=== PATIENT | female | born 1945 | race Caucasian/White ===

== ENCOUNTER 2025-07-08 05:05 | Inpatient (IN) ==
[2025-07-08] MEDS: OPTIRAY 320 100ml IV ONE (05:41)
[2025-07-08 05:53] LABS: Appearance Urine Cloudy (Clear); Bacteria Urine Automated 2+ (None Seen); Cast Urine Automated 0-2 /lpf (0-2); Epithelial Cell Urine Auto >20 /hpf (0-2); Glucose Urine UA Negative (Negative); RBC Urine Automated 0-2 /hpf (0-2); WBC Urine Automated 21-50 /hpf (0-5)
[2025-07-08 05:54] LABS: Hematocrit (blood only) 37.1 % (37.0-47.0); Hemoglobin 12.9 g/dL (12.0-16.0); Immature Granulocytes # (auto) 0.06 K/uL (0.01-0.20); Immature Granulocytes % (auto) 0.3 %; Mean Corpuscular Hemoglobin 28.5 pg (25.0-34.0); Mean Corpuscular Volume 81.9 fL (80.0-100.0); Platelet Count 407 K/uL (130-400); RDW Standard Deviation 37.3 fL (36.4-46.3); Red Blood Count 4.53 M/uL (4.20-5.40); White Blood Count 17.37 K/ul (4.8-10.8)
[2025-07-08 06:13] LABS: Alanine Aminotransferase 66.0 U/L (7-52); Albumin Globulin Ratio 1.0 (0.9-2); Albumin Level 3.8 gm/dl (3.4-5.0); Alkaline Phosphatase 324.0 U/L (34-104); Anion Gap 12.0 (3-11); Bilirubin,Total 0.6 mg/dl (0.2-1.0); Blood Urea Nitrogen 14.0 mg/dl (6-23); Calcium 8.9 mg/dl (8.6-10.3); Carbon Dioxide 23.0 mmol/L (21-32); Chloride 98.0 mmol/L (98-107); Creatinine Clr Calc Pharmacy 56.5 ml/min; Globulin 3.8 gm/dl (2.5-4.0); Glucose 120.0 mg/dl (70-99(Fasting)); Lipase 3.0 U/L (11-82); Potassium 3.8 mmol/L (3.5-5.1); Sodium 133.0 mmol/L (136-145); Total Protein 7.6 gm/dl (6.0-8.3)
[2025-07-08] MEDS: ACETAMINOPHEN 1,000 MG/100 ML VIAL IV STA (06:19)
--- NOTE | 2025-07-08 06:27 | CT Scan Report ---
EXAM: CT abdomen pelvis wo/w con CLINICAL HISTORY: Right flank pain TECHNIQUE: CT of the abdomen and pelvis was performed without and with IV contrast, with the following protocol: axial images with, and reconstructed coronal and sagittal images. One of the following dose reduction techniques was utilized for this exam: Automated exposure control, adjustment of the mA and/or kV according to patient size, and use of iterative reconstruction. COMPARISON: 07/04/2025 CR was reviewed. FINDINGS: Abdomen: Liver: Normal in size, shape, and density. No focal lesions, cysts, or masses were identified. Hepatic vasculature and biliary ducts are unremarkable. Gallbladder and Biliary System: The gallbladder is normal in size and shape. No wall thickening, pericholecystic fluid, or gallstones were identified. The common bile duct is normal in caliber without dilation. Pancreas: The pancreatic head, body, and tail are visualized and appear normal in size and density. No pancreatic masses or calcifications were noted. The pancreatic duct is not dilated. Spleen: Normal in size, shape, and density. No splenic lesions or masses were identified. Appendix: A well-defined marginally enhanced retrocecal lesion measures about 5 x 6 x 8 cm. The Appendix is indistinct, likely an appendicular abscess associated with mesenteric fat stranding and cecal mural thickening. Kidneys and Adrenal Glands: Both kidneys are normal in size, shape, and position. Cortical thickness is within normal limits. No renal calculi or hydronephrosis. Adrenal glands are unremarkable with no evidence of masses or hyperplasia. Pelvis: Urinary Bladder: Normal in contour and wall thickness. No intraluminal lesions identified. Uterus: Small intramural and subserous bulging lesions, likely fibroids. Ultrasound correlation is advised. Ovaries: No masses. Vagina: Normal in contour and wall thickness. Cervix: No evidence of mass or abnormal thickening. Peritoneal and Retroperitoneal Structures: Minimal pelvic fluid. No lymphadenopathy was noted. Mesnetic panniculitis noted. Bowel: Otherwise, no evidence of bowel obstruction or wall thickening. Bones and Soft Tissues: Pelvic bones and soft tissues are unremarkable. No fractures or abnormal masses were identified. IMPRESSION: CT findings are impressive of complicated retrocecal appendicitis with reterocecal abscess formation. Clinical context is required. The underlying neoplastic lesion is not totally excluded. Electronically signed by Gene Reyes 07-08-2025 06:27 AM
[2025-07-08] MEDS: PIPERACILLIN/TAZOBACTAM 4.5 GM/100 ML BAG IV ONE (06:41)
[2025-07-08] MEDS: CEFEPIME 2000MG 2,000 MG/20 ML SYR IV SCH ×2 (06:50→15:15)
--- NOTE | 2025-07-08 07:13 | Emergency Department Note ---
Impression & Plan Appendicitis with abscess, Flank Pain, Acute appendicitis ED Provider Note NAME: TYSON DAVIS AGE: 79 SEX: F : 1945 ARRIVES VIA: Walk-In INFORMANT: Patient, ED PROVIDER(S): Johanna Bourne MD CHIEF COMPLAINT: Right flank pain HPI: This is an 79-year-old female presents for right flank pain. Patient states that over the past 1 week she has had increasing pain to the right lower quadrant. She notes she saw her primary care doctor on Friday who did an x-ray and blood work. This was unrevealing. Feels pain is progressively worsening. She has had chills without fevers. No urinary symptoms. No nausea vomiting or diarrhea. No chest pain or shortness of breath. Pain is in the right lower quadrant and wraps around into the flanks. ROS: See above HPI for pertinent positives & negatives. A total of 10 systems reviewed and were otherwise negative. PAST MEDICAL HISTORY: See Below PAST SURGICAL HISTORY: See Below FAMILY HISTORY: See Below SOCIAL HISTORY: See Below HOME MEDICATIONS: See Below ALLERGIES: See Below VITALS: See Below PHYSICAL EXAMINATION: General: resting comfortably in no acute distress Head: Normocephalic and atraumatic Eyes: Normal inspection, extraocular muscles intact Ear, nose, throat: Normal external exam Neck: Normal range of motion Respiratory: lungs clear to auscultation bilaterally Cardiovascular: Regular rate/rhythm, no murmur GI: Exquisitely tender in the right lower quadrant without rebound, voluntary guarding Extremities: nontender, moves all extremities Neuro: The patient awake and alert, appropriately conversive, no focal deficits, symmetric faces Skin: Warm, dry, and intact MEDICAL DECISION MAKING: This is a 79-year-old female presenting for right lower quadrant pain. Screening blood work, CT imaging ordered at triage. - Screening blood work reveals signs of leukocytosis not initially present 4 days ago. Electrolytes within normal limits. -Urinalysis reveals likely contamination, no urinary symptoms per patient - CT imaging reveals a complicated appendicitis with retrocecal abscess formation - Patient given cefepime and metronidazole as patient has a penicillin allergy - Care discussed with Dr. Cheatham's PA will see the patient promptly for further planning -Patient ultimately will admit to medicine based on surgical recommendations -Care discussed with Dr. Amato, hospitalist for admission Differential diagnosis: Abscess, cholecystitis, pyonephritis, UTI, renal colic Diagnostics interpreted by me: ECG: None Cardiac Monitoring: An order was placed for continuous cardiac monitoring. The monitor shows a rate of 61 with sinus rhythm. Past Med/Surg History Problem List (Updated 07/08/25 @ 13:51 by Johanna Bourne MD) Acute appendicitis (Acute) Flank Pain (Acute) Appendicitis with abscess (Acute) Prehypertension Cataract Impaired glucose tolerance Hyperlipidemia Eustachian tube disorder Sleep disorder Migraine occasional Arthritis of knee, left Menopause (Acute) Medical History Need for hepatitis C screening test Surgical History Hx of cataract extraction History of wisdom tooth extraction S/P breast biopsy (~2005) benign Family History Mother Tonsillar cancer Father Diabetes Brother Lung cancer Prostate cancer Myocardial infarction Seizure Stroke Sister Hypertension Aunt Breast cancer Denies family history of Ovarian cancer Colorectal cancer Social History Smoking Status: Never smoker Second Hand Exposure: No; Do You Dip or Chew Tobacco: No; Hx Alcohol Use: No Hx Substance Use: No Preferred Language: Portuguese Communication Ability: Effective Visual Impairment: Diminished Hearing Ability: Normal Intramural Director Required: No Beliefs That Will Affect Care: None marital status: / Current Living Situation: Family current occupational status: retired How many Children do You have: 0 Feels Safe at Home: Yes Childhood Exposure to Second-Hand Smoke: Yes Diet: regular caffeine: Yes Dental Care, Regularly: Yes Physical Activity Frequency: Daily Seatbelt Use: always Sunscreen Use: Yes Assistive Devices: None Allergies Allergies Allergy/AdvReac Type Severity Reaction Status Date / Time fexofenadine [From Arpita] Allergy Unknown Weakness Verified 07/08/25 06:31 Penicillins Allergy Unknown Rash Verified 07/08/25 06:31 Home Meds Home Medications Medication Instructions Recorded Confirmed omega-3 fatty acids 1,000 mg 1,000 mg PO DAILY 03/26/23 07/08/25 capsule turmeric 400 mg capsule 400 mg PO DAILY 03/26/23 07/08/25 vitamin B complex 1 cap PO DAILY 03/26/23 07/08/25 multivitamin 1 tab PO DAILY 06/14/25 07/08/25 Previous Rx's Medication Instructions Recorded ergocalciferol (vitamin D2) 1,250 1,250 mcg PO .weekly #14 caps 11/16/24 mcg (50,000 unit) capsule Results & Data (ED) Vital Signs Vital Signs - 24 hr 07/08/25 05:08 07/08/25 05:41 07/08/25 06:00 Temperature 36.6 C Temperature Source Oral Pulse Rate 73 67 60 Pulse Rate from SpO2 Sensor Respiratory Rate 18 18 Respiratory Effort / Characteristics Non-Labored Spontaneous Respiratory Depth Normal Respiratory Pattern Regular Blood Pressure 153/77 H 138/66 Blood Pressure Mean 102 99 Blood Pressure Position Sitting Pulse Oximetry 99 96 Oxygen Delivery Method Room Air Room Air Sepsis Recent Fever Within 48 Hours No Sepsis New/Unexplained Change in Mental Status N/A Sepsis Action Taken by Nursing No Action Required 07/08/25 06:30 07/08/25 07:00 07/08/25 07:30 Temperature Temperature Source Pulse Rate 60 58 L 59 L Pulse Rate from SpO2 Sensor 58 L 59 L Respiratory Rate 20 16 18 Respiratory Effort / Characteristics Respiratory Depth Respiratory Pattern Blood Pressure 150/61 H 152/64 H 163/66 H Blood Pressure Mean 107 93 98 Blood Pressure Position Pulse Oximetry 98 93 95 Oxygen Delivery Method Room Air Room Air Room Air Sepsis Recent Fever Within 48 Hours Sepsis New/Unexplained Change in Mental Status Sepsis Action Taken by Nursing 07/08/25 08:00 07/08/25 08:30 Temperature Temperature Source Pulse Rate 58 L 57 L Pulse Rate from SpO2 Sensor 58 L 57 L Respiratory Rate 14 16 Respiratory Effort / Characteristics Respiratory Depth Respiratory Pattern Blood Pressure 150/66 H 152/66 H Blood Pressure Mean 94 94 Blood Pressure Position Pulse Oximetry 95 94 Oxygen Delivery Method Room Air Room Air Sepsis Recent Fever Within 48 Hours Sepsis New/Unexplained Change in Mental Status Sepsis Action Taken by Nursing Laboratory Data 07/08/25 10:24 07/08/25 05:20 Lab Results 07/08/25 Range/Units 05:20 WBC 17.37 H (4.8-10.8) K/ul RBC 4.53 (4.20-5.40) M/uL Hgb 12.9 (12.0-16.0) g/dL Hct 37.1 (37.0-47.0) % MCV 81.9 (80.0-100.0) fL MCH 28.5 (25.0-34.0) pg MCHC 34.8 (32.0-36.0) g/dL RDW Std Deviation 37.3 (36.4-46.3) fL RDW Coeff of Eugenia 12.3 (11.5-14.5) % Plt Count 407 H (130-400) K/uL MPV 10.8 (9.4-12.4) fL Immature Gran % (Auto) 0.3 % Neut % (Auto) 76.5 % Lymph % (Auto) 16.6 % [place] % (Auto) 6.0 % Eos % (Auto) 0.4 % Baso % (Auto) 0.2 % Neut # (Auto) 13.27 H (1.40-6.50) K/uL Lymph # (Auto) 2.89 (1.20-3.40) K/uL [place] # (Auto) 1.04 H (0.11-0.59) K/uL Eos # (Auto) 0.07 (0.00-0.50) K/uL Baso # (Auto) 0.04 (0.00-0.20) K/uL Immature Gran # (Auto) 0.06 (0.01-0.20) K/uL Sodium 133 L (136-145) mmol/L Potassium 3.8 (3.5-5.1) mmol/L Chloride 98 (98-107) mmol/L Carbon Dioxide 23 (21-32) mmol/L Anion Gap 12 H (3-11) BUN 14 (6-23) mg/dl Creatinine 0.84 (0.6-1.2) mg/dl Est Cr Clr Drug Dosing 56.5 ml/min eGFR 70.20 BUN/Creatinine Ratio 16.7 (10-20) Glucose 120 H (70-99(Fasting)) mg/dl Calcium 8.9 (8.6-10.3) mg/dl Total Bilirubin 0.6 (0.2-1.0) mg/dl AST 56 H (13-39) U/L ALT 66 H (7-52) U/L Alkaline Phosphatase 324 H (34-104) U/L Total Protein 7.6 (6.0-8.3) gm/dl Albumin 3.8 (3.4-5.0) gm/dl Globulin 3.8 (2.5-4.0) gm/dl Albumin/Globulin Ratio 1.0 (0.9-2) Lipase 3 L (11-82) U/L Urine Color Yellow Urine Appearance Cloudy A (Clear) Urine pH 5.5 (4.5-7.5) Ur Specific [place] 1.020 (1.000-1.030) Urine Protein Trace H (Negative) Urine Glucose (UA) Negative (Negative) Urine Ketones Trace H (Negative) Urine Blood Negative (Negative) Urine Nitrite Negative (Negative) Urine Bilirubin Negative (Negative) Urine Urobilinogen Negative (Negative) Ur Leukocyte Esterase 2+ H (Negative) Urine WBC (Auto) 21-50 H (0-5) /hpf Urine RBC (Auto) 0-2 (0-2) /hpf U Hyaline Cast (Auto) 0-2 (0-2) /lpf U Epithel Cells (Auto) >20 H (0-2) /hpf Urine Bacteria (Auto) 2+ H (None Seen) Urine Comment Administered Medications Sodium Chloride (Nss) 1,000 mls @ 80 mls/hr IV .[id number] RACIEL Stop: 07/11/25 10:14 Last Admin: 07/08/25 10:33 Dose: 80 mls/hr Documented By: RADHA Discontinued Medications Acetaminophen (Ofirmev) 1,000 mg in 100 mls @ 400 mls/hr IV NOW STA Stop: 07/08/25 06:29 Last Infusion: 07/08/25 06:34 Dose: Infused Documented By: Admin: 07/08/25 06:19 Dose: 400 mls/hr Documented By: NAVI Piperacillin Sod/Tazobactam Sod (Zosyn) 4.5 gm in 100 mls @ 200 mls/hr IV NOW ONE; Protocol Stop: 07/08/25 06:58 Last Admin: 07/08/25 06:41 Dose: Not Given Documented By: NAVI Metronidazole (Flagyl) 500 mg in 100 mls @ 100 mls/hr IV Q8H [facility]; Protocol Stop: 07/10/25 06:44 Last Infusion: 07/08/25 08:47 Dose: Infused Documented By: Admin: 07/08/25 07:14 Dose: 100 mls/hr Documented By: RADHA Cefepime HCl (Maxipime 2000mg) 2,000 mg in 20 mls @ 5 mls/min IV Q12H [facility]; Protocol Stop: 07/10/25 06:44 Last Admin: 07/08/25 06:50 Dose: 5 mls/min Documented By: NAVI Ioversol (Optiray 320 100ml) 100 ml IV ONCE ONE Stop: 07/08/25 05:42 Last Admin: 07/08/25 05:41 Dose: 93 ml Documented By: JOSE Ketorolac Tromethamine (Ketorolac Tromethamine 15 Mg/Ml Vial) 15 mg IV NOW ONE Stop: 07/08/25 09:26 Last Admin: 07/08/25 10:28 Dose: 15 mg Documented By: RADHA Imaging Data Radiologist's Impression: Abdomen/Pelvis CT 07/08/25 05:12 EXAM: CT abdomen pelvis wo/w con CLINICAL HISTORY: Right flank pain TECHNIQUE: CT of the abdomen and pelvis was performed without and with IV contrast, with the following protocol: axial images with, and reconstructed coronal and sagittal images. One of the following dose reduction techniques was utilized for this exam: Automated exposure control, adjustment of the mA and/or kV according to patient size, and use of iterative reconstruction. COMPARISON: 07/04/2025 CR was reviewed. FINDINGS: Abdomen: Liver: Normal in size, shape, and density. No focal lesions, cysts, or masses were identified. Hepatic vasculature and biliary ducts are unremarkable. Gallbladder and Biliary System: The gallbladder is normal in size and shape. No wall thickening, pericholecystic fluid, or gallstones were identified. The common bile duct is normal in caliber without dilation. Pancreas: The pancreatic head, body, and tail are visualized and appear normal in size and density. No pancreatic masses or calcifications were noted. The pancreatic duct is not dilated. Spleen: Normal in size, shape, and density. No splenic lesions or masses were identified. Appendix: A well-defined marginally enhanced retrocecal lesion measures about 5 x 6 x 8 cm. The Appendix is indistinct, likely an appendicular abscess associated with mesenteric fat stranding and cecal mural thickening. Kidneys and Adrenal Glands: Both kidneys are normal in size, shape, and position. Cortical thickness is within normal limits. No renal calculi or hydronephrosis. Adrenal glands are unremarkable with no evidence of masses or hyperplasia. Pelvis: Urinary Bladder: Normal in contour and wall thickness. No intraluminal lesions identified. Uterus: Small intramural and subserous bulging lesions, likely fibroids. Ultrasound correlation is advised. Ovaries: No masses. Vagina: Normal in contour and wall thickness. Cervix: No evidence of mass or abnormal thickening. Peritoneal and Retroperitoneal Structures: Minimal pelvic fluid. No lymphadenopathy was noted. Mesnetic panniculitis noted. Bowel: Otherwise, no evidence of bowel obstruction or wall thickening. Bones and Soft Tissues: Pelvic bones and soft tissues are unremarkable. No fractures or abnormal masses were identified. IMPRESSION: CT findings are impressive of complicated retrocecal appendicitis with reterocecal abscess formation. Clinical context is required. The underlying neoplastic lesion is not totally excluded. Electronically signed by Gene Reyes 07-08-2025 06:27 AM Discharge Plan Visit Data Chief Complaint: Flank Pain Stated Complaint: RT FLANK PAIN ED Provider: Johanna Bourne Discharge Problem: Appendicitis with abscess, Flank Pain, Acute appendicitis Patient Disposition: Admitted As Inpatient Condition: Fair Discharge Instructions Interventions: ED Discharge Assessment Last Done: 07/08/25 10:57
[2025-07-08] MEDS: metroNIDAZOLE 500 MG/100 ML BAG IV SCH ×2 (07:14→15:15)
[2025-07-08] MEDS ORDERED: ACETAMINOPHEN 325 MG TAB PO PRN (09:59)
[2025-07-08] MEDS ORDERED: MoRPHine SULFATE 4 MG/ML 1 ML CARP\\VIAL IV PRN (10:01)
[2025-07-08] MEDS: KETOROLAC TROMETHAMINE 15 MG/ML VIAL IV ONE (10:28)
[2025-07-08] MEDS: SODIUM CHLORIDE 0.9% 1,000 ML IV SCH (10:33)
[2025-07-08 10:38] LABS: Hematocrit (blood only) 33.3 % (37.0-47.0); Hemoglobin 11.4 g/dL (12.0-16.0); Mean Corpuscular Hemoglobin 27.9 pg (25.0-34.0); Mean Corpuscular Volume 81.4 fL (80.0-100.0); Platelet Count 354 K/uL (130-400); RDW Standard Deviation 37.2 fL (36.4-46.3); Red Blood Count 4.09 M/uL (4.20-5.40); White Blood Count 14.90 K/ul (4.8-10.8)
--- NOTE | 2025-07-08 10:47 | History & Physical Report ---
Date of Service July 08, 2025 Assessment & Plan (1) Appendicitis with abscess: Plan: -NPO -IVF -cefepime/flagyl -morphine prn -zofran prn -surgery consulted by ER -no plan of immediate surgery -abx and possible IR drain placement Plan Heparin SQ for DVT px History of Present Illness Chief Complaint: Right sided abdominal pain Primary Care Provider: Des Baltazar MD Pt is an 79 y/o female with no significant PMH who presents with 5 days of worsening RLQ abdominal pain. Pt states on Friday she went to her PCP who did an xray and labs that did not show anything. She denies any fever, chills, nausea or vomiting. In the ER her WBC was 14k. She had a CT a/p which showed appendicitis with retrocecal abscess formation. She was started on cefepime/flagyl and the case was discussed with general surgery immigration law specialist, who recommended continuing abx and admission to medicine. Allergies Allergy/AdvReac Type Severity Reaction Status Date / Time fexofenadine [From Arpita] Allergy Unknown Weakness Verified 07/08/25 06:31 Penicillins Allergy Unknown Rash Verified 07/08/25 06:31 Home Medications Medication Instructions Recorded Confirmed Type omega-3 fatty acids 1,000 mg 1,000 mg PO DAILY 03/26/23 07/08/25 History capsule turmeric 400 mg capsule 400 mg PO DAILY 03/26/23 07/08/25 History vitamin B complex 1 cap PO DAILY 03/26/23 07/08/25 History ergocalciferol (vitamin D2) 1,250 1,250 mcg PO .weekly #14 caps 11/16/24 07/08/25 Rx mcg (50,000 unit) capsule multivitamin 1 tab PO DAILY 06/14/25 07/08/25 History Past Med/Surg History Problem List (Updated 07/08/25 @ 10:45 by Beau Amato MD) Appendicitis with abscess Prehypertension Cataract Impaired glucose tolerance Hyperlipidemia Eustachian tube disorder Sleep disorder Migraine occasional Arthritis of knee, left Menopause (Acute) Medical History Need for hepatitis C screening test Surgical History Hx of cataract extraction History of wisdom tooth extraction S/P breast biopsy (~2005) Family History Mother Tonsillar cancer Father Diabetes Brother Lung cancer Prostate cancer Myocardial infarction Seizure Stroke Sister Hypertension Aunt Breast cancer Denies family history of Ovarian cancer Colorectal cancer Social History Smoking Status: Never smoker Second Hand Exposure: No; Do You Dip or Chew Tobacco: No; Hx Alcohol Use: No Hx Substance Use: No Preferred Language: Luxembourgish Communication Ability: Effective Visual Impairment: Diminished Hearing Ability: Normal marital status: / Current Living Situation: Alone current occupational status: retired How many Children do You have: 0 Feels Safe at Home: Yes Childhood Exposure to Second-Hand Smoke: Yes Diet: regular caffeine: Yes Dental Care, Regularly: Yes Physical Activity Frequency: Daily Seatbelt Use: always Sunscreen Use: Yes Assistive Devices: Glasses Review of Systems Review of Systems: CONST: Negative for fever, body aches and chills. HENT: Negative for neck pain/stiffness, headache, congestion, sore throat, swelling. EYES: Negative for discharge/pain or vision changes. RESP: Negative for cough/hemoptysis and shortness of breath. CV: Negative chest pain, difficulty breathing, palpitations. ABD: Negative pain, nausea, vomiting. : Negative increase frequency, dysuria, blood in urine or stool. MUSC: Negative for muscle aches, edema. SKIN: Negative rash, lesions/sores. NEURO: Negative headache, dizziness, weakness. Physical Exam Physical Exam: GENERAL APPEARANCE NAD, activity normal for age, well developed/ well nourished, no cyanosis, pallor, or diaphoresis. EYES lids/conjunctiva normal. EARS/NOSE/THROAT Mucous membranes moist, nares normal, lips/teeth normal uvula midline without oral pharyngeal erythema, exudate or swelling TMs normal bilaterally. No lymphangitis/lymphedema. HEAD/NECK normocephalic atraumatic, no facial trauma, neck is supple. RESPIRATORY respiratory effort normal, speaks in full sentences, no tripod position, no accessory muscle use. Lungs clear to auscultation without rhonchi, wheezes, rales CARDIAC Regular rate and rhythm, no edema. ABDOMINAL RLQ pain MUSCLES/EXTREMITIES No abnormal range of motion, no swelling. SKIN Warm, pink and dry. No rashes, dermatoses, petechiae or lesions. NEUROLOGICAL Speech is clear and appropriate. Normal level of consciousness. Gait and coordination are normal. 5/5 strength in all extremities. PSYCH Normal mood and affect. Judgement/competence is appropriate Results & Data Results & Data Vital Signs (Past 12 Hours) Vital Signs Temp Pulse Resp BP Pulse Ox O2 Del Method 07/08/25 10:30 63 07/08/25 08:30 57 L 16 152/66 H 94 Room Air 07/08/25 08:00 58 L 14 150/66 H 95 Room Air 07/08/25 07:30 59 L 18 163/66 H 95 Room Air 07/08/25 07:00 58 L 16 152/64 H 93 Room Air 07/08/25 06:30 60 20 150/61 H 98 Room Air 07/08/25 06:00 60 18 138/66 96 Room Air 07/08/25 05:41 67 07/08/25 05:08 36.6 C 73 18 153/77 H 99 Room Air PG Care Time/CCT Total # of Minutes Spent Total Time Spent with Patient: Total time spent is greater than 50% in coordination of care (as documented) at patient's floor/unit and/or counseling patient: Coding Level of Care Code 49465 INT INP/OBS CARE 2/55MIN Diagnoses Appendicitis with abscess K35.33
--- NOTE | 2025-07-08 11:06 | Surgery Consultation ---
Date of Consultation July 08, 2025 Assessment & Plan (1) Appendicitis with abscess: Plan Patient currently is hemodynamically stable, mildly hypertensive, does have some right-sided abdominal pain, but no peritoneal signs and no evidence of free air on CAT scan, so no indication for emergent surgical exploration at this time. Due to the CT findings of a fluid collection in the retrocecal space, it appears walled off, we suspect that the patient may have had a perforated appendicitis that has formed an abscess. I have discussed the patient's case with radiology, Dr. Dalal, who has reviewed the imaging and does not feel that this abscess is amenable to CT-guided drainage by interventional radiology. Our hope, is that the patient can recover from this with bowel rest and IV antibiotic therapy and we can avoid an emergent surgical intervention at this time. For now, would recommend keeping the patient n.p.o., IV antibiotics, IV pain medication, activity as tolerated, and trend white blood cell count and temps. If white blood cell count trends down, abdominal pain improves, and she remains afebrile, we would plan for a repeat CAT scan in approximately 6 to 8 weeks and to discuss an interval appendectomy if the appendix is visualized, but for now we recommend hospital admission and the general surgery team will follow. Supervising Physician Co-Signing Physician Notes I have seen and examined this patient this patient with the surgical PA I agree with this plan for conservative management History of Present Illness Reason for Consultation: appendicitis, concerns for possible perforation History of Present Illness Patient is a relatively healthy 79 y/o female with a documented past medical history of hyperlipidemia and hypertension, but this is diet controlled, who presents to [facility] ER complaining of abdominal pain x 1 week. Patient states that here abdominal pain is localized to the right side of her abdomen, describe as sharp and stabbing but also crampy, constant, but varies in intensity, worse with movement, somewhat better at rest, with no radiation of the pain. Patient states that she has been taking tylenol at home with little relief. She denies any nausea or vomiting, no chest pain or shortness of breath, no constipation or diarrhea. She states that her last meal was yesterday, she has been eating well, but admits to having a poor appetite. She saw her PCP earlier this week who reportedly obtained an xray and labs, but thes e were unremarkable. She had an ultrasound scheduled as an outpatient next week, but her abdominal pain increased in severity so she came to the ER for evaluation. Upon her initial eval, she was hypertensive, but otherwise hemodynamically stable. Her exam was significant for right sided abdominal tenderness, but no overt peritoneal signs. Her labs were significant for an elevated white blood cell count of 17.3. She had a CAT scan of the abdomen pelvis which showed findings concerning for a right lower quadrant abscess, probable perforated appendicitis, so general surgery was consulted. Allergies Allergy/AdvReac Type Severity Reaction Status Date / Time fexofenadine [From Arpita] Allergy Unknown Weakness Verified 07/08/25 06:31 Penicillins Allergy Unknown Rash Verified 07/08/25 06:31 Home Medications Medication Instructions Recorded Confirmed Type omega-3 fatty acids 1,000 mg 1,000 mg PO DAILY 03/26/23 07/08/25 History capsule turmeric 400 mg capsule 400 mg PO DAILY 03/26/23 07/08/25 History vitamin B complex 1 cap PO DAILY 03/26/23 07/08/25 History ergocalciferol (vitamin D2) 1,250 1,250 mcg PO .weekly #14 caps 11/16/24 07/08/25 Rx mcg (50,000 unit) capsule multivitamin 1 tab PO DAILY 06/14/25 07/08/25 History Patient History Medical History Need for hepatitis C screening test Surgical History Hx of cataract extraction History of wisdom tooth extraction S/P breast biopsy (~2005) benign Family History Mother Tonsillar cancer Father Diabetes Brother Lung cancer Prostate cancer Myocardial infarction Seizure Stroke Sister Hypertension Aunt Breast cancer Denies family history of Ovarian cancer Colorectal cancer Social History Smoking Status: Never smoker Second Hand Exposure: No; Do You Dip or Chew Tobacco: No; Hx Alcohol Use: No Hx Substance Use: No Preferred Language: Faroese Communication Ability: Effective Visual Impairment: Diminished Hearing Ability: Normal 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 Required: No Beliefs That Will Affect Care: None marital status: / Current Living Situation: Family current occupational status: retired How many Children do You have: 0 Feels Safe at Home: Yes Childhood Exposure to Second-Hand Smoke: Yes Diet: regular caffeine: Yes Dental Care, Regularly: Yes Physical Activity Frequency: Daily Seatbelt Use: always Sunscreen Use: Yes Assistive Devices: None Review of Systems Review of Systems: All systems reviewed & are unremarkable except as noted in HPI & below Physical Exam Physical Exam: Gen: Awake and alert, resting comfortably in bed in NAD CV: RRR PULM: non-labored breathing Abd: Abd soft, non-distended, moderately tender to the right side abdomen, upper and lower quadrants, but no guarding or rigidity, no overt peritoneal signs. ext: no edema to bilateral lower ext, SCDs in place, non-tender, feet warm and well perfused Results & Data Vital Signs (Past 12 Hours) Vital Signs Temp Pulse Resp BP Pulse Ox O2 Del Method 07/08/25 10:57 87 18 179/81 H 98 Room Air 07/08/25 10:30 63 07/08/25 08:30 57 L 16 152/66 H 94 Room Air 07/08/25 08:00 58 L 14 150/66 H 95 Room Air 07/08/25 07:30 59 L 18 163/66 H 95 Room Air 07/08/25 07:00 58 L 16 152/64 H 93 Room Air 07/08/25 06:30 60 20 150/61 H 98 Room Air 07/08/25 06:00 60 18 138/66 96 Room Air 07/08/25 05:41 67 07/08/25 05:08 36.6 C 73 18 153/77 H 99 Room Air Diagnostic Findings CT Abd/pelvis: IMPRESSION: CT findings are impressive of complicated retrocecal appendicitis with reterocecal abscess formation. Clinical context is required. The underlying neoplastic lesion is not totally excluded. PG Care Time/CCT Total # of Minutes Spent Total Time Spent with Patient: Total time spent is greater than 50% in coordination of care (as documented) at patient's floor/unit and/or counseling patient: [place] [address] IN/OBS CONSULT LVL 5,80M Patient Type New Medical Decision Making Moderate Complexity Diagnoses Appendicitis with abscess K35.33
[2025-07-08] MEDS: HEPARIN SOD 5,000 UNIT/0.5 ML VIAL SQ SCH (15:15)
[2025-07-09] MEDS: ACETAMINOPHEN 1,000 MG/100 ML VIAL IV PRN (01:04)
[2025-07-09 06:49] LABS: Anion Gap 11.0 (3-11); Blood Urea Nitrogen 14.0 mg/dl (6-23); Calcium 8.3 mg/dl (8.6-10.3); Carbon Dioxide 20.0 mmol/L (21-32); Chloride 106.0 mmol/L (98-107); Creatinine Clr Calc Pharmacy 62.5 ml/min; Glucose 79.0 mg/dl (70-99(Fasting)); Potassium 4.2 mmol/L (3.5-5.1); Sodium 137.0 mmol/L (136-145)
--- NOTE | 2025-07-09 08:53 | Surgery Progress Note ---
Date of Service July 09, 2025 Assessment & Plan (1) Acute appendicitis: Plan Patient appears to be recovering well with conservative treatment for her perforated appendicitis. We feel that she could be advanced to clear liquid diet and continue on this while we continue IV antibiotics and trend her white blood cell count, temps, and serial abdominal exams. Our hope is to avoid surgery on this admission if she remains clinically stable and will plan on an outpatient CAT scan in approximately 6 weeks and to discuss possible interval appendectomy at that time. Remainder of her care per the primary medicine team, general surgery will continue to follow for now. Admission and Anticipated Discharge Date Admission Date: July 08, 2025 Supervising Physician Co-Signing Physician Notes I have seen and examined this pt this am with the surgical PA. I agree with this plan Improving on abx Continue conservative management Pt is on chemical DVT ppx Ambulate Subjective Patient currently states that she feels better, does admit to some right-sided abdominal pain, however states that this is much improved. She also admits to mild nausea but no vomiting, she suspects that the nausea is relating to feeling hungry. She has remained n.p.o. for bowel rest, denies any flatus or bowel movement. Physical Exam Physical Exam: Gen: Awake and alert, resting comfortably in bed in NAD CV: RRR PULM: non-labored breathing Abd: Abd soft, non-distended, mildly tender to the right side abdomen, upper and lower quadrants, much improved compared to yesterday, with no guarding or rigidity, no overt peritoneal signs. ext: no edema to bilateral lower ext, SCDs in place, non-tender, feet warm and well perfused Results & Data Vital Signs (Past 12 Hours) Vital Signs Temp Pulse Resp BP Pulse Ox O2 Del Method 07/09/25 08:28 36.8 C 74 18 164/70 H 95 Room Air 07/08/25 23:16 37.3 C 83 16 159/65 H 95 Room Air PG Care Time/CCT Total # of Minutes Spent Total Time Spent with Patient: Total time spent is greater than 50% in coordination of care (as documented) at patient's floor/unit and/or counseling patient: Coding Level of Care Code 83985 SUB INP/OBS CARE 09/04MIN Diagnoses Acute appendicitis with perforation, localized peritonitis, and abscess, unspecified whether gangrene present K35.33 Acute appendicitis type: with localized peritonitis Appendicitis gangrene presence: unspecified whether gangrene present Appendicitis perforation presence: with perforation Appendicitis abscess presence: with abscess (1) Acute appendicitis Acute appendicitis type: with localized peritonitis Appendicitis gangrene presence: unspecified whether gangrene present Appendicitis perforation presence: with perforation Appendicitis abscess presence: with abscess Qualified Code(s): K35.33 - Acute appendicitis with perforation, localized peritonitis, and gangrene, with abscess
--- NOTE | 2025-07-09 09:10 | Hospitalist Progress Note ---
Date of Service July 09, 2025 Assessment & Plan (1) Appendicitis with abscess: Plan: -no surgical or IR intervention at this time -con't serial abdominal examinations -diet advanced to clears as per surgery -IVF -cefepime/flagyl -morphine prn -zofran prn Plan Heparin SQ for DVT px Admission and Anticipated Discharge Date Admission Date: July 08, 2025 Subjective No events overnight. Pt feeling better with less pain. Review of Systems Review of Systems: CONST: Negative for fever, body aches and chills. HENT: Negative for neck pain/stiffness, headache, congestion, sore throat, swelling. EYES: Negative for discharge/pain or vision changes. RESP: Negative for cough/hemoptysis and shortness of breath. CV: Negative chest pain, difficulty breathing, palpitations. ABD: Negative pain, nausea, vomiting. : Negative increase frequency, dysuria, blood in urine or stool. MUSC: Negative for muscle aches, edema. SKIN: Negative rash, lesions/sores. NEURO: Negative headache, dizziness, weakness. Physical Exam Physical Exam: GENERAL APPEARANCE NAD, activity normal for age, well developed/ well nourished, no cyanosis, pallor, or diaphoresis. EYES lids/conjunctiva normal. EARS/NOSE/THROAT Mucous membranes moist, nares normal, lips/teeth normal uvula midline without oral pharyngeal erythema, e xudate or swelling TMs normal bilaterally. No lymphangitis/lymphedema. HEAD/NECK normocephalic atraumatic, no facial trauma, neck is supple. RESPIRATORY respiratory effort normal, speaks in full sentences, no tripod position, no accessory muscle use. Lungs clear to auscultation without rhonchi, wheezes, rales CARDIAC Regular rate and rhythm, no edema. ABDOMINAL RLQ pain MUSCLES/EXTREMITIES No abnormal range of motion, no swelling. SKIN Warm, pink and dry. No rashes, dermatoses, petechiae or lesions. NEUROLOGICAL Speech is clear and appropriate. Normal level of consciousness. Gait and coordination are normal. 5/5 strength in all extremities. PSYCH Normal mood and affect. Judgement/competence is appropriate Results & Data Results & Data Vital Signs (Past 12 Hours) Vital Signs Temp Pulse Resp BP Pulse Ox O2 Del Method 07/09/25 08:28 36.8 C 74 18 164/70 H 95 Room Air 07/08/25 23:16 37.3 C 83 16 159/65 H 95 Room Air PG Care Time/CCT Total # of Minutes Spent Total Time Spent with Patient: Total time spent is greater than 50% in coordination of care (as documented) at patient's floor/unit and/or counseling patient: Coding Level of Care Code 99830 SUB INP/OBS CARE 2/35MIN Diagnoses Appendicitis with abscess K35.33
[2025-07-09 10:46] LABS: Hematocrit (blood only) 32.6 % (37.0-47.0); Hemoglobin 11.3 g/dL (12.0-16.0); Immature Granulocytes # (auto) 0.04 K/uL (0.01-0.20); Immature Granulocytes % (auto) 0.3 %; Mean Corpuscular Hemoglobin 28.7 pg (25.0-34.0); Mean Corpuscular Volume 82.7 fL (80.0-100.0); Platelet Count 363 K/uL (130-400); RDW Standard Deviation 38.2 fL (36.4-46.3); Red Blood Count 3.94 M/uL (4.20-5.40); White Blood Count 13.81 K/ul (4.8-10.8)
[2025-07-10] MEDS: ONDANSETRON INJ 2 MG/ML 2 ML VIAL IV PRN (00:54)
[2025-07-10 06:41] LABS: Hematocrit (blood only) 31.3 % (37.0-47.0); Hemoglobin 10.6 g/dL (12.0-16.0); Immature Granulocytes # (auto) 0.04 K/uL (0.01-0.20); Immature Granulocytes % (auto) 0.3 %; Mean Corpuscular Hemoglobin 28.0 pg (25.0-34.0); Mean Corpuscular Volume 82.8 fL (80.0-100.0); Platelet Count 349 K/uL (130-400); RDW Standard Deviation 39.0 fL (36.4-46.3); Red Blood Count 3.78 M/uL (4.20-5.40); White Blood Count 14.12 K/ul (4.8-10.8)
[2025-07-10 07:12] LABS: Anion Gap 9.0 (3-11); Blood Urea Nitrogen 11.0 mg/dl (6-23); Calcium 8.0 mg/dl (8.6-10.3); Carbon Dioxide 21.0 mmol/L (21-32); Chloride 106.0 mmol/L (98-107); Creatinine Clr Calc Pharmacy 65.0 ml/min; Glucose 113.0 mg/dl (70-99(Fasting)); Potassium 3.9 mmol/L (3.5-5.1); Sodium 136.0 mmol/L (136-145)
--- NOTE | 2025-07-10 09:48 | Hospitalist Progress Note ---
Date of Service July 10, 2025 Assessment & Plan (1) Appendicitis with abscess: Plan: -no surgical or IR intervention at this time -con't serial abdominal examinations -diet advanced to clears as per surgery -IVF -cefepime/flagyl day #3 -morphine prn -zofran prn Plan Heparin SQ for DVT px Admission and Anticipated Discharge Date Admission Date: July 08, 2025 Subjective No events overnight. Pt still feeling abdominal pain, but tolerating diet. Review of Systems Review of Systems: CONST: Negative for fever, body aches and chills. HENT: Negative for neck pain/stiffness, headache, congestion, sore throat, swelling. EYES: Negative for discharge/pain or vision changes. RESP: Negative for cough/hemoptysis and shortness of breath. CV: Negative chest pain, difficulty breathing, palpitations. ABD: Negative pain, nausea, vomiting. : Negative increase frequency, dysuria, blood in urine or stool. MUSC: Negative for muscle aches, edema. SKIN: Negative rash, lesions/sores. NEURO: Negative headache, dizziness, weakness. Physical Exam Physical Exam: GENERAL APPEARANCE NAD, activity normal for age, well developed/ well nourished, no cyanosis, pallor, or diaphoresis. EYES lids/conjunctiva normal. EARS/NOSE/THROAT Mucous membranes moist, nares normal, lips/teeth normal uvula midline without oral pharyngeal erythema, exudate or swelling TMs normal bilaterally. No lymphangitis/lymphedema. HEAD/NECK normocephalic atraumatic, no facial trauma, neck is supple. RESPIRATORY respiratory effort normal, speaks in full sentences, no tripod position, no accessory muscle use. Lungs clear to auscultation without rhonchi, wheezes, rales CARDIAC Regular rate and rhythm, no edema. ABDOMINAL RLQ pain MUSCLES/EXTREMITIES No abnormal range of motion, no swelling. SKIN Warm, pink and dry. No rashes, dermatoses, petechiae or lesions. NEUROLOGICAL Speech is clear and appropriate. Normal level of consciousness. Gait and coordination are normal. 5/5 strength in all extremities. PSYCH Normal mood and affect. Judgement/competence is appropriate Results & Data Results & Data Vital Signs (Past 12 Hours) Vital Signs Temp Pulse Resp BP Pulse Ox O2 Del Method 07/10/25 07:24 37.0 C 64 18 137/71 95 Room Air 07/09/25 22:28 36.9 C 69 18 157/67 H 98 Room Air PG Care Time/CCT Total # of Minutes Spent Total Time Spent with Patient: Total time spent is greater than 50% in coordination of care (as documented) at patient's floor/unit and/or counseling patient: Coding Level of Care Code 17015 SUB INP/OBS CARE 2/35MIN Diagnoses Appendicitis with abscess K35.33
[2025-07-10] MEDS: PANTOprazole 40 MG/10 ML SYR IV SCH (12:32)
--- NOTE | 2025-07-10 17:06 | Surgery Progress Note ---
<Statement entered by Jeanne Brown DO - 07/10/25 18:09> I have seen and examined this patient this am with the surgical PA and I agree with this plan Date of Service July 10, 2025 Assessment & Plan (1) Acute appendicitis: Plan Patient appears to be recovering well with conservative treatment for her perforated appendicitis, however white blood cell count slightly elevated today compared to yesterday's. We recommend continuing on a clear liquid diet and observe for return of bowel function, continue multimodal pain management for her right sided abdominal pain. Continue IV Zosyn and trend white blood cell count and temps. If her white blood cell count continues to climb, we will consider repeating CAT scan of the abdomen pelvis to assess for any drainable fluid collection. Okay from surgical standpoint for pharmacologic DVT prophylaxis. Remainder of her care per the primary medicine team, general surgery will continue to follow for now. Admission and Anticipated Discharge Date Admission Date: July 08, 2025 Subjective Patient currently states that she feels somewhat improved, does still admit to some right sided abdominal pain, worse with movement, better at rest, well- tolerated with current pain medication regimen. Patient has remained hemodynamically stable, mildly hypertensive, but no complaints of any chest pain or palpitations. Her white blood cell count is slightly elevated today at 14.1, up minimally from 13.8 yesterday, afebrile, on Zosyn for her perforated appendicitis. Remainder of her labs are within normal limits. She states that she has been tolerating clear liquids without any nausea or vomiting, unsure if passing flatus, no bowel movement yet. Physical Exam Physical Exam: Gen: Awake and alert, resting comfortably in bed in NAD CV: RRR PULM: non-labored breathing Abd: Abd soft, non-distended, mildly tender to the right side abdomen, upper and lower quadrants, with no guarding or rigidity, no overt peritoneal signs. ext: no edema to bilateral lower ext, SCDs in place, non-tender, feet warm and well perfused Results & Data Vital Signs (Past 12 Hours) Vital Signs Temp Pulse Resp BP Pulse Ox O2 Del Method 07/10/25 14:18 36.7 C 59 L 18 151/67 H 97 Room Air 07/10/25 07:47 Room Air 07/10/25 07:24 37.0 C 64 18 137/71 95 Room Air PG Care Time/CCT Total # of Minutes Spent Total Time Spent with Patient: Total time spent is greater than 50% in coordination of care (as documented) at patient's floor/unit and/or counseling patient: Coding [place] [address] SUB INP/OBS CARE 09/04MIN Patient Type Established History Problem Focused Exam Problem Focused Medical Decision Making Straight Forward Diagnoses Acute appendicitis with perforation, localized peritonitis, and abscess, unspecified whether gangrene present K35.33 Acute appendicitis type: with localized peritonitis Appendicitis abscess presence: with abscess Appendicitis gangrene presence: unspecified whether gangrene present Appendicitis perforation presence: with perforation (1) Acute appendicitis Acute appendicitis type: with localized peritonitis Appendicitis abscess presence: with abscess Appendicitis gangrene presence: unspecified whether gangrene present Appendicitis perforation presence: with perforation Qualified Code(s): K35.33 - Acute appendicitis with perforation, localized peritonitis, and gangrene, with abscess
[2025-07-11 08:13] LABS: Hematocrit (blood only) 31.5 % (37.0-47.0); Hemoglobin 10.6 g/dL (12.0-16.0); Immature Granulocytes # (auto) 0.06 K/uL (0.01-0.20); Immature Granulocytes % (auto) 0.4 %; Mean Corpuscular Hemoglobin 27.7 pg (25.0-34.0); Mean Corpuscular Volume 82.5 fL (80.0-100.0); Platelet Count 320 K/uL (130-400); RDW Standard Deviation 39.5 fL (36.4-46.3); Red Blood Count 3.82 M/uL (4.20-5.40); White Blood Count 14.57 K/ul (4.8-10.8)
[2025-07-11 08:31] LABS: Anion Gap 8.0 (3-11); Blood Urea Nitrogen 8.0 mg/dl (6-23); Calcium 7.9 mg/dl (8.6-10.3); Carbon Dioxide 22.0 mmol/L (21-32); Chloride 107.0 mmol/L (98-107); Creatinine Clr Calc Pharmacy 66.0 ml/min; Glucose 94.0 mg/dl (70-99(Fasting)); Potassium 3.6 mmol/L (3.5-5.1); Sodium 137.0 mmol/L (136-145)
--- NOTE | 2025-07-11 10:00 | Surgery Progress Note ---
Date of Service July 11, 2025 Assessment & Plan (1) Acute appendicitis: Plan Perforated. WBC increased slightly today. Afebrile, HD stable Plan for repeat CT today Continue IV abx, IVF until nausea resolves and tolerating clears well Ambulate May continue chemical DVT ppx Admission and Anticipated Discharge Date Admission Date: July 08, 2025 Subjective Pt seen and examined this am. Admits to occasional nausea, no vomiting. Denies F/C. Admits to passing gas and has not yet had a BM. Physical Exam Constitutional: + ill appearing and average body habitus ; not in distress and not diaphoretic Respiratory: normal respiratory effort; no respiratory distress, no labored breathing and does not use accessory muscles Cardiovascular: Rate/Rhythm: regular rate; not tachycardic Gastrointestinal (Abdomen): Inspection/Auscultation: abdomen normal to inspection; abdomen not distended Percussion/Palpation: + abdomen tender (mod TTP LQ) and abdomen soft; no guarding and abdomen not rigid Results & Data Vital Signs (Past 12 Hours) Vital Signs Temp Pulse Resp BP Pulse Ox O2 Del Method 07/11/25 07:15 36.9 C 67 18 168/62 H 97 Room Air 07/10/25 22:38 36.9 C 62 18 150/68 H 98 Room Air PG Care Time/CCT Total # of Minutes Spent Total Time Spent with Patient: Total time spent is greater than 50% in coordination of care (as documented) at patient's floor/unit and/or counseling patient: Coding Level of Care Code 65366 SUB INP/OBS CARE 09/04MIN Diagnoses Acute appendicitis with perforation, localized peritonitis, and abscess, unspecified whether gangrene present K35.33 Acute appendicitis type: with localized peritonitis Appendicitis abscess presence: with abscess Appendicitis gangrene presence: unspecified whether gangrene present Appendicitis perforation presence: with perforation (1) Acute appendicitis Acute appendicitis type: with localized peritonitis Appendicitis abscess presence: with abscess Appendicitis gangrene presence: unspecified whether gangrene present Appendicitis perforation presence: with perforation Qualified Code(s): K35.33 - Acute appendicitis with perforation, localized peritonitis, and gangrene, with abscess
--- NOTE | 2025-07-11 11:28 | CT Scan Report ---
CT OF THE ABDOMEN AND PELVIS WITHOUT CONTRAST CLINICAL HISTORY: worsening WBC on IVabx for perf appy COMPARISON STUDY: CT of the abdomen and pelvis July 08, 2025. TECHNIQUE: Axial images of the abdomen and pelvis were obtained without IV contrast. Images were revi ewed in the axial, sagittal, and coronal planes. Automated exposure control was utilized for the moira dy. A dose lowering technique was utilized adhering to the principles of ALARA. FINDINGS: Trace bilateral pleural effusions have developed. No pneumatosis, free air or portal venous gas is present. The gallbladder is mildly distended. Unenhanced images of the liver, spleen and adre nal glands are unremarkable. There is no biliary or pancreatic ductal dilatation. Pancreatic glandula r atrophy is again noted. There is no evidence for a bowel obstruction. As before, the retrocecal catherine endix is dilated with wall thickening. A periappendiceal fluid collection is similar to prior CT of N ovember 2024 measuring 2.9 x 2.1 cm. Adjacent stranding and a small amount of fluid is unchanged. Inflammation extends to the abdominal wall. No new fluid collections are present. All thickening at the base of the cecum is noted. A small amount of ascites within the pelvis is unchanged. IMPRESSION: 1. No significant change in findings consistent with perforated acute appendicitis since [facility] of [facility] er 2024. Dilated appendix with appendiceal wall thickening, periappendiceal inflammation and a st able 2.9 x 2.1 cm periappendiceal abscess. This collection is not amenable to percutaneous drain plac ement given small size. No extraluminal gas. Wall thickening of the base of the cecum is likely relat ed to acute appendicitis. However, imaging follow-up to ensure resolution is recommended to exclude t he less likely possibility of an underlying lesion 2. No bowel obstruction. 3. Interval development of trace bilateral pleural effusions. 4. Small amount of pelvic ascites, unchanged. ACT 112: Negative or not required by law. Electronically signed by: Quinton Nelson M.D. 07/11/2025 11:26 AM
[2025-07-11] MEDS: LACTATED RINGER'S 1,000 ML IV SCH (13:51)
--- NOTE | 2025-07-11 19:23 | Hospitalist Progress Note ---
Date of Service July 11, 2025 Assessment & Plan (1) Appendicitis with abscess: Plan: -no surgical or IR intervention at this time -con't serial abdominal examinations -continue clear liquids -Reduce IV fluid rate to 50ml/hr -cefepime/flagyl day #4 -morphine prn -zofran prn Plan Heparin SQ for DVT px Admission and Anticipated Discharge Date Admission Date: July 08, 2025 Subjective Mild nausea, no vomiting. Not yet had BM but passing gas. Abdominal pain significantly improved from admission Physical Exam Gastrointestinal (Abdomen): Inspection/Auscultation: abdomen normal to inspection; abdomen not distended Percussion/Palpation: + abdomen tender (RUQ) and abdomen soft Results & Data Results & Data Vital Signs (Past 12 Hours) Vital Signs Temp Pulse Resp BP Pulse Ox O2 Del Method 07/11/25 16:08 37.0 C 66 18 178/71 H 94 Room Air PG Care Time/CCT Total # of Minutes Spent Total Time Spent with Patient: Total time spent is greater than 50% in coordination of care (as documented) at patient's floor/unit and/or counseling patient: Coding Level of Care Code 89574 SUB INP/OBS CARE 2/35MIN Diagnoses Appendicitis with abscess K35.33
[2025-07-12 07:02] LABS: Hematocrit (blood only) 30.6 % (37.0-47.0); Hemoglobin 10.5 g/dL (12.0-16.0); Immature Granulocytes # (auto) 0.09 K/uL (0.01-0.20); Immature Granulocytes % (auto) 0.7 %; Mean Corpuscular Hemoglobin 28.4 pg (25.0-34.0); Mean Corpuscular Volume 82.7 fL (80.0-100.0); Platelet Count 343 K/uL (130-400); RDW Standard Deviation 38.8 fL (36.4-46.3); Red Blood Count 3.70 M/uL (4.20-5.40); White Blood Count 13.37 K/ul (4.8-10.8)
[2025-07-12 07:37] LABS: Anion Gap 8 (3-11); Blood Urea Nitrogen 9 mg/dl (6-23); Calcium 8.1 mg/dl (8.6-10.3); Carbon Dioxide 23 mmol/L (21-32); Chloride 104 mmol/L (98-107); Creatinine Clr Calc Pharmacy 63.3 ml/min; Glucose 90 mg/dl (70-99(Fasting)); Sodium 135 mmol/L (136-145)
--- NOTE | 2025-07-12 15:31 | Surgery Progress Note ---
<Statement entered by Oh Reich MD - 07/12/25 15:52> I saw the patient with the physician elementary assistant principal and I agree w the assessment and plan of care. Date of Service July 12, 2025 Assessment & Plan (1) Acute appendicitis: Plan: Patient here w/ acute appendicitis with abscess Repeat CT scan performed yesterday showed stable findings and abscess 2.9cm x 2.1cm not amenable to drainage Today WBC 13 (14). She is afebrile. Patient clinically feels better than yesterday Plan to trial further diet advancement Continue IV abx while in house to ensure WBC decreasing, symptoms continue to improve, and she remains afebrile Transition to orals upon discharge to complete course. will likely need interval appendectomy in 6-8 weeks time and may follow up with us in the office as an outpatient for this Admission and Anticipated Discharge Date Admission Date: July 08, 2025 Subjective Patient feeling better than yesterday. + BM. Tolerating clears without nausea/vomiting. Physical Exam Physical Exam: awake/alert, no distress Gastrointestinal (Abdomen): Inspection/Auscultation: abdomen not distended Percussion/Palpation: + abdomen tender (mild right mid discomfort to palpation) and abdomen soft Results & Data Vital Signs (Past 12 Hours) Vital Signs Temp Pulse Resp BP Pulse Ox O2 Del Method 07/12/25 08:07 98.6 F 76 16 177/79 H 96 Room Air PG Care Time/CCT Total # of Minutes Spent Total Time Spent with Patient: Total time spent is greater than 50% in coordination of care (as documented) at patient's floor/unit and/or counseling patient: Coding Level of Care Code 90432 SUB INP/OBS CARE 09/04MIN Diagnoses Acute appendicitis with perforation, localized peritonitis, and abscess, unspecified whether gangrene present K35.33 Acute appendicitis type: with localized peritonitis Appendicitis abscess presence: with abscess Appendicitis gangrene presence: unspecified whether gangrene present Appendicitis perforation presence: with perforation (1) Acute appendicitis Acute appendicitis type: with localized peritonitis Appendicitis abscess presence: with abscess Appendicitis gangrene presence: unspecified whether gangrene present Appendicitis perforation presence: with perforation Qualified Code(s): K35.33 - Acute appendicitis with perforation, localized peritonitis, and gangrene, with abscess
--- NOTE | 2025-07-12 19:07 | Hospitalist Progress Note ---
Date of Service July 12, 2025 Assessment & Plan (1) Appendicitis with abscess: Plan: Improving WBC and abdominal pain - surgery increased diet to low fiber which appears to be reasonable -no surgical or IR intervention at this time -con't serial abdominal examinations -Stop IV fluids -cefepime/flagyl day #5 -morphine prn -zofran prn (2) Penicillin allergy: Plan: Recommend follow up with allergy after discharge as this is most likely not a true allergy Plan VTE Prophylaxis - Heparin SQ Disposition - Continue on med/surg Admission and Anticipated Discharge Date Admission Date: July 08, 2025 Subjective Abdominal pain improved and no worse with clear liquid diet Physical Exam Gastrointestinal (Abdomen): Inspection/Auscultation: abdomen normal to inspection; abdomen not distended Percussion/Palpation: + abdomen tender (RUQ, improved) and abdomen soft; no guarding and abdomen not rigid Results & Data Results & Data Vital Signs (Past 12 Hours) Vital Signs Temp Pulse Resp BP BP Pulse Ox O2 Del Method 07/12/25 16:26 195/70 H 07/12/25 15:38 36.7 C 70 184/64 H 96 Room Air 07/12/25 08:07 37 C 76 16 177/79 H 96 Room Air PG Care Time/CCT Total # of Minutes Spent Total Time Spent with Patient: Total time spent is greater than 50% in coordination of care (as documented) at patient's floor/unit and/or counseling patient: Coding Level of Care Code 75948 SUB INP/OBS CARE 2/35MIN Diagnoses Appendicitis with abscess K35.33 Penicillin allergy Z88.0
[2025-07-12 23:10] VITALS: RESP 18; TEMP 98.4
[2025-07-13 07:30] LABS: Hematocrit (blood only) 30.2 % (37.0-47.0); Hemoglobin 10.5 g/dL (12.0-16.0); Immature Granulocytes # (auto) 0.15 K/uL (0.01-0.20); Immature Granulocytes % (auto) 1.2 %; Mean Corpuscular Hemoglobin 28.6 pg (25.0-34.0); Mean Corpuscular Volume 82.3 fL (80.0-100.0); Platelet Count 353 K/uL (130-400); RDW Standard Deviation 39.1 fL (36.4-46.3); Red Blood Count 3.67 M/uL (4.20-5.40); White Blood Count 12.87 K/ul (4.8-10.8)
[2025-07-13 07:50] VITALS: BP 179/69; PULSE 72; O2SAT 95
[2025-07-13 07:55] LABS: Anion Gap 8.0 (3-11); Blood Urea Nitrogen 11.0 mg/dl (6-23); Calcium 8.0 mg/dl (8.6-10.3); Carbon Dioxide 24.0 mmol/L (21-32); Chloride 105.0 mmol/L (98-107); Creatinine Clr Calc Pharmacy 55.2 ml/min; Glucose 98.0 mg/dl (70-99(Fasting)); Potassium 3.5 mmol/L (3.5-5.1); Sodium 137.0 mmol/L (136-145)
--- NOTE | 2025-07-13 08:24 | Hospitalist Progress Note ---
Date of Service July 13, 2025 Assessment & Plan (1) Appendicitis with abscess: Plan: Improving WBC and abdominal pain - surgery increased diet to low fiber which appears to be reasonable -no surgical or IR intervention at this time -con't serial abdominal examinations -Stop IV fluids -cefepime/flagyl day #5 -morphine prn -zofran prn (2) Penicillin allergy: Plan: Recommend follow up with allergy after discharge as this is most likely not a true allergy Plan 79-year-old female who presented 1[address] with abdominal pain. On CT scan patient found to have appendicitis with retrocecal abscess. She was initiated on cefepime and metronidazole. General surgery recommended medical management with follow-up of outpatient appendectomy once inflammatory state improves. Surgery is not commented on duration of antibiotics at this time. Still advancing diet. VTE Prophylaxis - Heparin SQ Disposition - Continue on med/surg Admission and Anticipated Discharge Date Admission Date: July 08, 2025 Results & Data Results & Data Vital Signs (Past 12 Hours) Vital Signs Temp Pulse Resp BP Pulse Ox O2 Del Method 07/13/25 07:49 98.4 F 72 18 179/69 H 95 Room Air 07/12/25 23:09 98.4 F 79 18 178/71 H 93 Room Air PG Care Time/CCT Total # of Minutes Spent Total Time Spent with Patient: Total time spent is greater than 50% in coordination of care (as documented) at patient's floor/unit and/or counseling patient: Coding Diagnoses Appendicitis with abscess K35.33 Penicillin allergy Z88.0
--- NOTE | 2025-07-13 10:12 | Surgery Progress Note ---
Date of Service July 13, 2025 Assessment & Plan (1) Appendicitis with abscess: Plan: Patient here w/ acute appendicitis with abscess 2.9x2.1cm not amenable to IR drainage WBC 12.8 (13.3). Vitals are stable and she is afebrile Feels much better than admission and making improvements each day. mild discomfort to R lateral abdomen with palpation She is tolerating a diet, no n/v. Having + bowel function As she continues to improve believe she could be discharged to home and transition to oral abx and complete a 2 week course given perforation with abscess Please follow up with us in the office in 2 week time frame and we can discuss elective appendectomy in about 6-8 weeks Admission and Anticipated Discharge Date Admission Date: July 08, 2025 Subjective Patient feels well. Mild R sided pain with palpation, but much improved since admission. Tolerating a diet. No n/v. + bowel function Physical Exam Physical Exam: awake/alert, no distress Respiratory: normal respiratory effort Gastrointestinal (Abdomen): Inspection/Auscultation: abdomen not distended Percussion/Palpation: + abdomen tender (mild R lateral abdominal discomfort to palpation ) and abdomen soft Results & Data Vital Signs (Past 12 Hours) Vital Signs Temp Pulse Resp BP Pulse Ox O2 Del Method 07/13/25 07:49 98.4 F 72 18 179/69 H 95 Room Air 07/12/25 23:09 98.4 F 79 18 178/71 H 93 Room Air PG Care Time/CCT Total # of Minutes Spent Total Time Spent with Patient: Total time spent is greater than 50% in coordination of care (as documented) at patient's floor/unit and/or counseling patient: Coding Level of Care Code 28088 SUB INP/OBS CARE 09/04MIN Diagnoses Appendicitis with abscess K35.33
--- NOTE | 2025-07-13 18:34 | Discharge Summary ---
Discharge Summary Date of Service July 13, 2025 Principal Dx & Hospital Course #1 = Principal Diagnosis (1) Appendicitis with abscess: Improving WBC and abdominal pain - surgery increased diet to low fiber which appears to be reasonable -no surgical or IR intervention at this time plans to have outpatient surgical follow-up to consider appendectomy when inflammation reduces. Abdominal exam on day of discharge was without significant discomfort -cefepime/flagyl day #5-will complete 14-day total of Cipro Flagyl as an outpatient follow-up with surgery to can determine if the continue course or truncated at that time Patient does not wish to have home pain medications. (2) Penicillin allergy: Recommend follow up with allergy after discharge as this is most likely not a true allergy Is concern for penicillin allergy Maxis avoid Augmentin as a treatment post discharge Plan 79-year-old female who presented 1[address] with abdominal pain. On CT scan patient found to have appendicitis with retrocecal abscess. She was initiated on cefepime and metronidazole. General surgery recommended medical management with follow-up of outpatient appendectomy once inflammatory state improves. Discussed with surgery for 14-day course of therapy. Patient tolerate advancement of diet did have good bowel movements we will go home with red flag warning signs educated on discharge Notes For Next Care Provider Consideration of extending course versus reimaging of abdomen if patient is not completely resolved after 14-day course of antibiotics. Currently good follow- up with surgery will be encouraged Admission HPI Per Admitting Provider Pt is an 79 y/o female with no significant PMH who presents with 5 days of worsening RLQ abdominal pain. Pt states on Friday she went to her PCP who did an xray and labs that did not show anything. She denies any fever, chills, nausea or vomiting. In the ER her WBC was 14k. She had a CT a/p which showed appendicitis with retrocecal abscess formation. She was started on cefepime/flagyl and the case was discussed with general surgery provider relations advocate, who recommended continuing abx and admission to medicine. Discharge Exam Pleasant female no particular distress. Abdomen with normal active bowel sounds soft nontender nondistended no rebound no guarding Discharge Plan Discharge Items Patient Disposition: Home - Self-Care Reason For Visit: ABDOMINAL PAIN Discharge Diagnosis: appendicitis with intraabdominal retrocecal abscess Condition on Discharge: Fair Activity: Per Instructions section Non-emergency contact: Primary Care Provider and Surgeon Call non-emergency contact if: your symptoms worsen Follow-up/Referrals: Des Baltazar MD [Primary Care Provider] - 07/18/25 1:30 pm Jeanne Brown, [Physician] - (please call to schedule follow up in the general surgical office in 2 weeks to discuss elective outpatient appendectomy in the near future) Diet: Low Fiber Addtl Attending Provider Instructions: complete your antibiotics and follow up with your surgeon please return if fever, increasing abdominal pain or signifcant diarrhea Pending Studies at Discharge: No Stand-Alone Forms: My [facility] Pict, Smoking Cessation Medications and DC Order Prescriptions: New ciprofloxacin HCl [Cipro] 500 mg tablet 500 mg PO BID Qty: 19 0RF metronidazole 500 mg tablet 500 mg PO BID Qty: 19 0RF Continued ergocalciferol (vitamin D2) 1,250 mcg (50,000 unit) capsule 1,250 mcg PO .weekly Qty: 14 2RF vitamin B complex Capsule 1 cap PO DAILY omega-3 fatty acids 1,000 mg capsule 1,000 mg PO DAILY turmeric 400 mg capsule 400 mg PO DAILY multivitamin Tablet 1 tab PO DAILY Discharge Orders: Discharge Order (Routine); Ordered 07/13/25 Ordered By: Elia Amanda Admission Data Admit Date/Time: 07/08/25 09:59 Attending Provider: Elia Amanda Admit Provider: Beau Amato Primary Care Provider: Des Baltazar Other Providers: Beau Amato; Jeanne Brown Other Interventions: Discharge Summary Assessment (RN) Last Done: 07/13/25 10:27 Hospital Stay Data Consultations 07/08/25 09:56 ED Decision to Admit Stat 07/08/25 09:57 Consult General Surgery Routine Diagnostic Imagining Performed 07/08/25 05:12 CT abdomen pelvis wo/w con Stat 07/11/25 11:00 CT abd pelvis wo con Stat Pending Results Patient Have Any Pending Studies at Discharge: No Discharge Instructions Given to Patient (Per Discharging Provider) complete your antibiotics and follow up with your surgeon please return if fever, increasing abdominal pain or signifcant diarrhea Total Time Total Time Spent Total Time Spent (In Minutes): I personally have spent greater than 30 minutes of time on the patient discharge today including review of tests, documentation, exam, and discussing treatment plan moving forward with the patient. Coding Level of Care Code 27679 INP/OBS DISCH >30 MIN Diagnoses Appendicitis with abscess K35.33 Penicillin allergy Z88.0
== END 2025-07-13 11:45 | disposition home or self-care (01) | DRG 373 ==
LOC: ED 05:05 → 3N 09:59 → SUATTDRO 09:59 → 3N 11:00